=== PATIENT | female | born 1945 | race Caucasian/White ===

== ENCOUNTER → 2022-12-16 07:51 | Outpatient (CLI) | payer OTHER, SELFPAY ==
[2022-12-16 08:52] LABS: Add Manual Diff / Slide Review NO; Basophils Absolute Auto 0 /uL (0-100); Basophils Percent Auto 0.9 % (0-2); Eosinophils Absolute Auto 100 /uL (0-450); Eosinophils Percent Auto 1.7 % (2-4); Hematocrit 39.9 % (36-46); Hemoglobin 13.6 g/dL (12.0-16.0); Lymphocytes Absolute Auto 1200 /uL (1100-4500); Lymphocytes Percent Auto 32.7 % (25-40); Mean Corpuscular Hemoglobin 32.4 PG (26-34); Mean Corpuscular Volume 95.3 fL (80-100); Monocytes Absolute Auto 600 /uL (0-900); Monocytes Percent Auto 15.1 % (3-14); Neutrophils Absolute Auto 1900 /uL (1500-7000); Neutrophils Percent Auto 49.6 % (50-75); Platelet Count 319 X10^3/uL (150-400); Red Blood Cell Count 4.19 X10^6/uL (4.0-5.2); Red Cell Distribution Width 12.8 % (11.6-14.8); White Blood Cell Count 3.8 X10^3/uL (4.5-11.0)
[2022-12-16 09:21] LABS: BUN Creatinine Ratio 25.8 (6-22); Blood Urea Nitrogen 16 mg/dL (7-17); Carbon Dioxide 30 mmol/L (22-32); Chloride 103 mmol/L (98-107); Estimated Glomerular Filt Rate > 60 mL/min (>60); Glucose 84 mg/dL (80-110); HEMOLYSIS < 15 (0-50); Potassium 4.8 mmol/L (3.4-5.1); Sodium 140 mmol/L (137-145)
== END ==
PROVIDERS: PCP Internal Medicine; Referring Provider Orthopaedic Surgery; Visit Provider Orthopaedic Surgery
DX: Z01.818 Encounter for other preprocedural examination (principal); M25.562 Pain in left knee; Z01.812 Encounter for preprocedural laboratory examination
CPT/HCPCS: 36415; 80048; 85025; 93005; 93010

== ENCOUNTER 2023-01-08 10:22 | Day surgery (SDC) | payer OTHER, SELFPAY ==
[2022-12-31 12:26] VITALS: BMI 21.6
[2023-01-08] VITALS (10 sets, daily range): BP systolic 104–137; BP diastolic 55–77; PULSE 66–95; RESP 15–23; TEMP 35.9–36.7; O2SAT 82–99; BMI 21.6
--- NOTE | 2023-01-08 11:30 | DI.RAD.S_ITS ---
PROCEDURE: XR KNEE LT 1TO2V INDICATIONS: post op total knee TECHNIQUE: 2 view(s) of the knee acquired. COMPARISON: None. FINDINGS: Bones: Patient is status post knee joint arthroplasty. Hardware components are in expected positions. Visualized bony structures are intact. Soft tissues: Overlying postoperative changes are noted. IMPRESSION: Postoperative arthroplasty change. Dictated by: Karla Dillon M.D. on 01/08/2023 at 16:16 Approved by: Karla Dillon M.D. on 01/08/2023 at 16:16
[2023-01-08] MEDS: ACETAMINOPHEN 325 MG TABLET 975 MG PO (12:39)
[2023-01-08] MEDS: LACTATED RINGERS 1,000 ML 42 ML IV ×2 (12:40→15:09)
[2023-01-08] MEDS: PREGABALIN 75 MG CAPSULE PO (12:40)
[2023-01-08] MEDS: CELECOXIB 200 MG CAPSULE PO (12:41)
[2023-01-08 12:52] LABS: COVID19 -Nasal RAPID Negative (Negative)
--- NOTE | 2023-01-08 13:37 | PM.PREOP ---
Pre-operative Note Interval Note History & Physical reviewed/Exam performed by Physician: Yes Changes to H&P: No
[2023-01-08] MEDS: CEFAZOLIN 2 GM/100 ML PREMIX 100 ML IV ×2 (14:15→22:26)
[2023-01-08] MEDS: TRANEXAMIC ACID 1,000 MG VIAL 1000 MG INJ ×2 (14:30→15:32)
--- NOTE | 2023-01-08 14:49 | PM.PNB.1 ---
Peripheral Nerve Block Note Pre-Procedure Reason for block: Attending surgeon request/order for post-op pain management Consent obtained from: Patient Procedure Date of procedure: 01/08/23 Start Time: 13:50 End Time: 14:00 Performed by: Matteo Leos Sedation - enter dose in comment field: IV Midazolam (mg) (1) and IV Fentanyl (mcg) (50) Location: Pre-Op Position: Supine Laterality: Left Sterile Technique: Chloraprep Skin Wheal: Lidocaine 1% mL: 1 Gauge: 27 Equipment Single injection - Needle brand, gauge, length: 22 guage needle Medications Medications - enter concentration (%) & mL in comment field: Bupivacaine (0.5% 20 ml) Test Dose: Negative Incremental aspiration prior to injection: Yes Ultrasound Reason for Ultrasound: U/S guidance used for needle placement and U/S used to visualize spread of anesthetic Image printed/saved/archived: Yes Vital signs VS: - 01/08/23 12:45 Temperature 98.0 F Pulse Rate 79 Respiratory Rate 15 Blood Pressure 133/77 Pulse Oximetry 99 Oxygen Delivery Method Room Air Oxygen Delivery Method Room Air
--- NOTE | 2023-01-08 14:53 | SUR.OPER ---
Supine on padded OR bed, head on pillow, arms secured on padded arm boards at <90 degrees abduction, legs uncrossed, safety belt at abdomen, tape over blanket over lower right leg. Left leg secured in [place] with padding and coban
[2023-01-08] MEDS: BUPIVACAINE 0.25% (PF) 60 ML, EPINEPHrine 0.3 MG INJ (15:09)
[2023-01-08] MEDS: MORPHINE 4 MG/ML INJ INJ (15:10)
[2023-01-08] MEDS: BUPIVACAINE LIPOSOME 266 MG/20 ML VIAL INJ (15:10)
--- NOTE | 2023-01-08 15:56 | PM.OP.1 ---
Operative Date/Time/Diagnoses Date of procedure: 01/08/23 Time of procedure: 15:56 Pre-op diagnosis: Left knee osteoarthritis Post-op diagnosis: same Procedure & Clinicians Procedure: Left total knee replacement Same procedure as scheduled: Yes Indications: The patient has had progressively worsening left knee pain with radiographic changes consistent with arthritis. Non-operative management has failed and the patient has requested total knee replacement. The risks, benefits and alternatives to surgery were discussed with the patient prior to proceeding. Risks discussed included, but were not limited to, failure to relieve pain, stiffness, infection, nerve damage, deep venous thrombosis, pulmonary embolism, stroke, coma, heart attack, permanent paralysis and , as well as the potential need for eventual revision of the prosthetic. Surgeon: Yousuf Landa Smalltalk Developer: Ezequiel Pretty Click Yes if Unassisted: No Anesthesia Type: Spinal, Peripheral nerve block and Local Operative Notes Findings: Severe medial and moderate patellofemoral osteoarthritis Closure Type: primary Specimen(s): none sent Prosthetic devices, grafts, tissues, transplants, or devices: Implants used in this procedure were manufactured by the [employer] and [employer] and included the BCS II Journey total knee replacement with a size 7 left cobalt chromium femur, a size 6 left non porous tibial base plate, a 10 mm cross-linked polyethylene insert and a 35 mm oval Kristal II patella. Applied: implant(s) Estimated Blood Loss (mL): 25 Blood products transfused: none Tourniquet time (min): 47 Procedure in detail: The patient was seen in the pre-operative area, where the left knee was identified as the operative site and this was marked with my initials. The patient received pre-operative antibiotics, and was taken to the operating room and placed on the operative table in the supine position. After satisfactory anesthesia, a application development director out was performed. The left leg was encircled with a tourniquet about the proximal thigh, and the leg was prepared from the toes to the tourniquet with ChloroPrep in the usual fashion and draped through sterile drapes. The leg was elevated and exsanguinated with Eschmark bandage and the tourniquet inflated to 250 mmHg pressure. The knee was approached through an approximately 18 cm incision centered over the patella and carried into the knee through a medial parapatellar arthrotomy. The anterior osteophytes and soft tissues were removed. The rotational landmarks of Alex's line and the transepicondylar axis were marked on the femur with electrocautery, and intramedullary guide holes for the femur and tibia were created. The distal femoral cut was made in 6 degrees of valgus using the intramedullary guide at the primary cut setting. The proximal tibial cut was then made using the intramedullary guide, taking 9 mm of bone off the less involved side. The extension gap was checked and the rotation of the femoral component confirmed with the gap balancing blocks. The anterior, posterior and chamfer cuts were then made. The posterior osteophytes and soft tissues were then removed. The posterior capsule was injected with part of a mixture of 40 ml 0.25% Marcaine mixed with 20 ml Exparel and 4 mg of morphine for post-operative pain control. The remainder of this mixture was injected into the capsule and subcutaneous tissues during cement curing. The tibia was prepared with the rotation set by an extra medullary guide. Trial tibial and femoral components were then placed and the intercondylar notch cut through the femoral trial. Range of motion was 0-140 degrees, with good stability throughout the range. The patella was then cut to accommodate the patellar prosthetic. There was no need for a lateral release. The trials were then removed, and the femoral hole plugged with a bone plug. The bone was prepared with pulsatile lavage, and dried with a sponge. Cement was applied and the final prosthetics placed. Excess cement was removed during and after cement curing. After confirming there was no extruded cement posteriorly, the final tibial insert was placed. The knee was copiously irrigated and the tourniquet deflated. Hemostasis was obtained. The capsule was closed with interrupted # 2 polyester sutures. The subcutaneous layer was closed with 3-0 Vicryl, and the skin with a running 3-0 V-Lock suture and Dermabond. An Aquacel Ag dressing was applied and the patient was taken to recovery having tolerated the procedure well. The assistance of a skilled surgical territory manager was necessary for this procedure to provide positioning, exposure and retraction to protect vital structures. Without the services of Mr. Pretty, the procedure could not have gone forward in a safe, expedient fashion. Complications: none Post-operative Condition: stable Disposition: PACU Plan for aftercare: The patient will be maintained on a standard total knee replacement protocol with weight bearing as tolerated. The patient will receive aspirin and sequential compression devices for DVT prophylaxis. The patient will be discharged home when safe for the home environment.
[2023-01-08] MEDS: IBUPROFEN 600 MG TABLET PO ×2 (17:39→22:25)
[2023-01-08] MEDS: ACETAMINOPHEN 325 MG TABLET 650 MG PO ×2 (17:39→22:25)
[2023-01-08] MEDS: LACTATED RINGERS 1,000 ML 100 ML IV (17:39)
--- NOTE | 2023-01-08 17:48 | PC.NURSE ---
Pt arrived from PACU at 1630 on stretcher. Transferred to bed. A&Ox4, no c/o pain. Able to feel pressure in feet and legs when touched. Able to move feet. L knee in sasha wrap c/d/i. Patient and friend oriented to room and call light. SCDs in place, bed in low position, bed alarm activated.
[2023-01-08] MEDS: OXYCODONE IR 5 MG TABLET PO (18:58)
[2023-01-08] MEDS: ASPIRIN EC 81 MG TABLET PO (21:10)
[2023-01-08] MEDS: DOCUSATE 100 MG CAPSULE PO (21:10)
[2023-01-08] MEDS: GABAPENTIN 300 MG CAPSULE PO (21:10)
[2023-01-09 02:00] VITALS: BP 113/60; PULSE 70; RESP 18; TEMP 36; O2SAT 92
[2023-01-09] MEDS: ACETAMINOPHEN 325 MG TABLET 650 MG PO ×2 (04:55→09:59)
[2023-01-09] MEDS: IBUPROFEN 600 MG TABLET PO ×2 (04:55→09:59)
[2023-01-09 05:56] LABS: Hematocrit 32.5 % (36-46); Hemoglobin 11.1 g/dL (12.0-16.0)
[2023-01-09] MEDS: CEFAZOLIN 2 GM/100 ML PREMIX 100 ML IV (06:04)
[2023-01-09] MEDS: OXYCODONE IR 5 MG TABLET PO ×2 (06:07→09:59)
--- NOTE | 2023-01-09 07:06 | PM.DS.1 ---
History of Present Illness History of Present Illness Date Patient Seen: 01/09/23 Time Patient Seen: 07:07 Chief complaint: Left knee osteoarthritis Narrative: The history and physical is contained in the chart previously completed note. Please refer to that note for this information. Discharge Providers Provider Date of admission: January 08, 2023 Discharge Date: 01/09/23 Primary care physician: Anjali Noble MD Consults: 01/08/23 16:45 Consult to Discharge Planning Routine Comment: Consult to Occupational Therapy Evaluate & Treat Comment: Physician Instructions: Evaluate and treat Consult to Physical Therapy Evaluate & Treat Comment: Physician Instructions: postop TKA protocol Discharge provider: Yousuf Landa MD Summary Hospital Course Discharge Diagnosis: 1. Left knee osteoarthritis 2. Post hemorrhagic anemia Hospital Course: The patient was admitted to the hospital and taken directly to the operating room on January 08, 2023. She underwent a left total knee replacement without complications. She was fairly comfortable postoperatively with good control from her perioperative blocks. She was noted to have a mild post hemorrhagic anemia as anticipated. It is felt this will likely improve with normal diet. Status at Discharge Cognitive/behavioral status at discharge: at baseline, oriented Functional status at discharge: uses cane/walker Overall status at discharge: patient is progressing back to baseline Time Spent with Patient Time spent: Less than 30 minutes Exam Vital Signs (past 8 hours): - 01/09/23 02:00 Temperature 96.8 F L Pulse Rate 70 Respiratory Rate 18 Blood Pressure 113/60 Pulse Oximetry 92 Oxygen Flow Rate 0 Oxygen Delivery Method Room Air Oxygen Flow Rate 0 Narrative Exam Narrative: Left knee wound is dressed with no drainage on the bandage. Calf is soft. Light touch and motion are intact in the left lower extremity. 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 She has a mild, anticipated post hemorrhagic anemia. She is comfortable in his ready for discharge home. Plan of Treatment: Discharge to home after physical therapy this morning. Follow up in my office in 10-14 days. A prescription has been electronically sent to her pharmacy for oxycodone. She is been instructed in the use of Tylenol and ibuprofen for additional postoperative pain control and the use of low-dose aspirin for DVT prophylaxis. Discharge Plan Discharge Plan Patient Disposition: Home Discharge orders & Medications Discharge Orders: Discharge (Order); Ordered 01/09/23 Ordered By: Yousuf Landa Prescriptions: New acetaminophen 325 mg Tablet 650 mg PO Q6H Qty: 250 0RF aspirin 81 mg Tablet,Delayed Release (Dr/Ec) 81 mg PO BID Qty: 84 0RF ibuprofen 600 mg Tablet 600 mg PO Q6H Qty: 250 0RF oxycodone 5 mg Tablet 5 mg PO Q4H PRN (Reason: Pain, Moderate (4-6)) Qty: 40 0RF Continued gabapentin [Neurontin] 300 MG capsule 300 mg PO HS Qty: 0 Discontinued acetaminophen [Tylenol Extra Strength] 500 MG tablet 500 mg PO BEDTIME Qty: 0 Follow up/Referrals: Anjali Noble MD [Primary Care Provider] - Yousuf Landa MD [Physician] - As previously scheduled Diet/Activity/Treatments Diet: Diet as Tolerated and Regular Activity: You may bear weight as tolerated on your left leg. Please try to walk for 5-10 minutes every hour while awake. Otherwise lie down and keep the knee elevated above her heart. Cold/Heat Therapy: You may apply ice for 15 minutes every hour as needed to the left knee for pain control. Skin/Wound/Dressing Care Report to your healthcare provider any signs of infection, such as:: chills, fever, night sweats, increased pain, unusual drainage and unusual redness Dressing: You may remove the Giovanni wrap 3 days after surgery and shower normally. Leave the deeper dressing in place until your postoperative follow-up. If the central strip of the deeper dressing becomes saturated with either water or blood, please call the office to have it evaluated. Visit Report/Discharge Packet Instructions: DI for Knee Replacement Stand Alone Forms: Patient Portal/API, Surgery Discharge Discharge Data Primary Care Provider: Anjali Noble Attending Provider: Yousuf Landa
[2023-01-09 08:27] VITALS: BP 124/73; PULSE 75; RESP 17; TEMP 36.2; O2SAT 98
[2023-01-09] MEDS: ASPIRIN EC 81 MG TABLET PO (09:08)
[2023-01-09] MEDS: DOCUSATE 100 MG CAPSULE PO (09:08)
--- NOTE | 2023-01-09 09:35 | PT.IIE ---
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) Hx laparoscopic cholecystectomy (12/18/10) Hx of bilateral cataract extraction (2021) Hx of tubal ligation Medical History (Last Updated 12/31/22 @ 13:09 by Vanessa Vásquez RN) Easy bruisability History of COVID-19 (~2021) Numbness Osteoarthritis Physical Therapy Inpatient Evaluation/Re-Eval M1 PT/OT-IP Prior Functional Status Start: 01/09/23 13:15 Freq: NEEDED Status: Active Protocol: Document 01/09/23 09:35 AB (Rec: 01/09/23 13:39 AB [id number]) Medical Review Prior Functional Status Medical History Reviewed Yes Communication able to make needs known Mobility and Gait pt stated that she is independent with all mobilities and ambulation without AD Social History Household Members none Living Arrangements House Number of Floors (Floors) One Floor Number of Stairs To Enter/Railing? 3 steps without AD Home Environment Standard Height Toilet,Walk in Shower,Built-In Shower Seat Home Equipment Front Wheel Walker,Four Wheel Walker,Straight Cane,Shower Seat with Backrest,Hand Held Shower,Grab Bars In Shower Additional Social History Comment pt stated that her friend will stay with her for ~ 10 days to help her M2 PT-IP Current Condition Start: 01/09/23 13:15 Freq: NEEDED Status: Active Protocol: Document 01/09/23 09:35 AB (Rec: 01/09/23 13:39 AB [id number]) Physical Therapy Current Condition Current Condition Evaluation Date 01/09/23 Treatment Diagnosis s/p L TKA; difficulty in walking Onset Date 01/08/23 M3 PT-IP Subjective Start: 01/09/23 13:15 Freq: NEEDED Status: Active Protocol: Document 01/09/23 09:35 AB (Rec: 01/09/23 13:39 AB [email or web address]) Subjective Physical Therapy Visit Type Type Initial Evaluation Visit Start Time 09:35 Visit Stop Time 11:30 Total Visit Minutes 30 Notes pt seen for split visits: 935 to 945 am and 1110 to 1130 Number of FLIGHT OPERATIONS SPECIALIST Visits 0 Physical Therapy Visit Comments Patient Comments agreeable to do PT Therapy Pain Assessment Pain When Pain Assessed At Rest Pain Present Pain Present Pain Reported Location Left Knee Intensity 5 Scale Used Numeric (0 - 10) Pain Management Techniques Distraction,Modification of Treatment,Re-positioning, Timing of Activity with Medications M4 PT-IP Mobility and Gait Start: 01/09/23 13:15 Freq: NEEDED Status: Active Protocol: Document 01/09/23 09:35 AB (Rec: 01/09/23 13:39 AB [id number]) PT-Bed Mobility Assessment Supine to Sit Supine to Sit Standby Assistance Sit to Supine Sit to Supine Standby Assistance PT-Transfer Assessment Sit to and From Stand Sit to and from Stand Standby Assistance,1 Person Assistance,Use of Upper Extremities Equipment Transfer Assistive Device Gait Belt,Front Wheeled Walker Orthotic/Prosthetic Devices or Brace: No Transfers Transfer Destination Bed,Chair Transfer Technique ambulated Transfer Ability Level of Assist Standby Assistance,Use of Upper Extremities Comments Mobility Comments pt completed sit to stand from chair SBA and ambulated to EOB SBA using FWW. completed bed mobility SBA. Assessed safety with 4WW. educated on use and brake management. pt completed sit to stand from bed SBA and ambulated towards the stairs using 4WW SBA ~ 150 ft. completed up/down steps using SPC SBA to CGA. repeated x 2 sets. pt ambulated back to her room using 4WW SBA. pt sat on chair and positioned with call ilght and table next to pt. pt without further concerns. Gait Assessment Gait Gait Assistance Required: Standby Assistance Distance (Feet) 150 Able to Maintain Weight Bearing Status Yes During Gait Assistive Devices Assistive Device Gait Belt,Front Wheeled Walker Orthotic/Prosthetic Devices or Brace: No Gait Deviations General Gait Pattern Decreased Stride Length, Decreased Feet Clearance Factors Limiting Gait Function Factors Limiting Gait Function Decreased Activity Tolerance, Decreased Strength,Limited Range of Motion,Pain,Poor Balance Stair Climbing Assessment Evaluation Level of Assist On Stairs Standby Assistance,Contact Guard Assistance Devices Stair Climbing Assistive Devices Straight Cane Technique/Endurance Stair Climbing Direction Ascend and Descend Stair Climbing Technique Step to Step Number of Steps Climbed 3 Query Text: Stair Climbing Set # Repetitions (reps) 2 PT-Balance Assessment Sitting Balance and Reactions Static Sitting Balance Ability Normal Dynamic Sitting Balance Ability Normal Standing Balance and Reactions Static Standing Balance Ability Good Dynamic Standing Balance Ability Fair Device Used FWW M5 PT-IP Objective Assessments Start: 01/09/23 13:15 Freq: NEEDED Status: Active Protocol: Document 01/09/23 09:35 AB (Rec: 01/09/23 13:39 AB [id number]) Orientation Orientation/Cognition Level of Alertness Alert Orientation Name,Age,Birthday,Month,Date, Year,Day of Week,Place, Situation Language Function Ability No Deficits Noted Safety Awareness Understands Safety Issues Memory Description No Deficits Noted Gross Range of Motion Lower Extremity ROM Assessment Within Functional Limits Strength Lower Extremity Strength Assessment Left Impaired Comments Strength Comments L knee flexion: 3-/5 L knee extension: 3+/5 L hip flexion: 3+/5 Coordination Assessment Gross Coordination Gross Coordination WNL Sensation Assessment Sensation Gross Sensation WNL Muscle Tone Muscle Tone WNL Yes M6 PT-IP Treatment Start: 01/09/23 13:15 Freq: NEEDED Status: Active Protocol: Document 01/09/23 09:35 AB (Rec: 01/09/23 13:39 [email or web address]) Physical Therapy Treatment Education Education Provided Precautions,Weight Bearing Status,Post-Op Packet,Safety M7 PT-IP Assessment and Plan Start: 01/09/23 13:15 Freq: NEEDED Status: Active Protocol: Document 01/09/23 09:35 AB (Rec: 01/09/23 13:39 [email or web address]) PT Summary Assessment and Plan Potential Rehabilitation Potential Good Status of Condition at Evaluation Stable Summary Impairments Pain,ROM,Strength,Balance, Coordination,Sensation,Tone, Cognition,Bed Mobility, Transfers,Gait,Activity Tolerance Assessment Summary pt requiring SBA to CGA with mobility using FWW/4WW. uses SPC for stair climbing. pt plans to go home and her friend will be staying with her to assist her. pt has outpt PT set up. pt may go home when medically stable. Goals Bed Mobility Goal Independent Transfer Goal Independent,Four Wheeled Walker Gait Goal Independent,Four Wheel Walker Gait Distance 300 Other Goals up/down 3 steps SPC mod I Days to Meet Goals 3 Frequency of Treatment Frequency Of Treatment Twice a Day Treatment Plan Physical Therapy Treatment Plan Bed Mobility Training,Transfer Training,Gait Training, Therapeutic Exercise,Balance Retraining,Post Op Education, Discharge Planning,Hot or Cold Pack,Neuromuscular Re-ed, Coordination Retraining,Manual Therapy Weight Bearing Status Weight Bearing Status Weight Bear as Tolerated Allowed Weight Bearing Amount (enter % LLE WBAT or #) (%) Recommendations To Nursing Amount of Assist Needed 1 Person Assist Discharge Recommendations PT Discharge Recommendations Home with Assistance, Outpatient PT Transportation Needs at Discharge Private Vehicle
--- NOTE | 2023-01-09 09:39 | CM.DANOTE ---
Discharge Planning/Care Management CM Discharge Assessment Start: 01/09/23 09:35 Freq: Status: Active Protocol: Document 01/09/23 09:35 JANEE (Rec: 01/09/23 09:39 JANEE [id number]) Discharge Planning Assessment Assigned Account Services Coordinator YESSY Boyer DPOA/Assigned Designee Name luis e Cagle Contact Information [phone] Advance Directives? Yes Advance Directives on File No History Provided By Patient,Medical Record Prior Living Arrangements House Household Members none Comment Spouse resides in memory care unit Type of transporation used prior to Drives own vehicle admit Independent with ADL's Yes Is patient alert and oriented? Yes Patient/Family Preference OP PT Therapy Barriers to Discharge No Comment Patient is a 77 yo F POD1 from Left TKA by Dr Landa. PCP Anjali Horvath [facility] Patient has planned for return home w/family to assist her and is currently awaiting therapy eval; patient expects to be cleared from therapy team w/outpatient PT No needs identified at this time from CM team. Will plan to follow if DC needs or concerns arise JW Discharge Plan Home Transportation Arrangement Family Referrals Initiated None needed
--- NOTE | 2023-01-09 10:18 | OT.IP.EVAL ---
Current Diagnoses Unilateral primary osteoarthritis, left knee (01/08/23) Surgery Performed Operation Date: 01/08/23 13:45 Actual Procedures p Total Knee Arthroplasty(Left) - Yousuf Landa MD Past Medical History (Last Updated 12/31/22 @ 13:09 by Vanessa Vásquez RN) Easy bruisability History of COVID-19 (~2021) Numbness Osteoarthritis Surgical History (Last Updated 12/31/22 @ 13:09 by Vanessa Vásquez RN) History of incision and drainage (05/11/12) History of total right hip replacement (03/01/13) Hx laparoscopic cholecystectomy (12/18/10) Hx of bilateral cataract extraction (2021) Hx of tubal ligation Occupational Therapy Inpatient Evaluation/Re-Eval M1 PT/OT-IP Prior Functional Status Start: 01/09/23 13:15 Freq: NEEDED Status: Active Protocol: Document 01/09/23 14:54 CGR (Rec: 01/09/23 15:04 CGR [id number]) Medical Review Prior Functional Status Medical History Reviewed Yes Communication able to make needs known Mobility and Gait pt stated that she is independent with all mobilities and ambulation without AD Activities of Daily Living and IADL's Pt is IND in all ADLs and IADLs at baseline. 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 Pt states her was recently moved into memory care. Social History Household Members none Living Arrangements House Number of Floors (Floors) Two Floors Number of Stairs To Enter/Railing? 3 steps without rail, pt can stay on the main floor. Home Environment Standard Height Toilet,Walk in Shower,Built-In Shower Seat Home Equipment Front Wheel Walker,Four Wheel Walker,Quad Cane,Shower Seat with Backrest,Hand Held Shower ,Monomer Recovery Supervisor,Grab Bars In Shower Additional Social History Comment pt stated that her friend will stay with her for ~ 10 days to help her. Pt has a flat bed M2 OT-IP Current Condition Start: 01/09/23 14:54 Freq: Status: Active Protocol: Document 01/09/23 14:54 CGR (Rec: 01/09/23 15:04 CGR [id number]) Occupational Therapy Current Condition Current Condition Evaluation Date 01/09/23 Treatment Diagnosis L TKA Diagnosis Onset Date 01/08/23 Weight Bearing Status Weight Bearing Status Weight Bear as Tolerated M3 OT- IP Subjective and Pain Start: 01/09/23 14:54 Freq: Status: Active Protocol: Document 01/09/23 14:54 CGR (Rec: 01/09/23 15:04 CGR [id number]) OT- Subjective Occupational Therapy Visit Type Type Initial Evaluation Visit Start Time 09:48 Visit Stop Time 10:18 Total Visit Minutes 30 OT Pain Assessment Pain When Pain Assessed At Rest Pain Present Pain Present Pain Reported Location Left Knee Intensity 4 Scale Used Numeric (0 - 10) Management Techniques Distraction,Modification of Treatment,Re-positioning, Timing of Activity with Medications M4 OT- IP ADL's Start: 01/09/23 14:54 Freq: Status: Active Protocol: Document 01/09/23 14:54 CGR (Rec: 01/09/23 15:04 CGR [id number]) OT [id number]-Wurohbk Comments OT Self-Feeding Comments not meal time OT ADL-Grooming General Evaluation Grooming Ability Independent Areas Needing Assistance Combing/Brushing Hair,Face Washing Comments OT Grooming Comments standing at sink OT ADL-Oral Care General Eval Oral Care Ability Independent Areas of Assistance Brushing Teeth,Retrieving/Set- Up of Items Comments Oral Care Comments standing at sink OT ADL-Dressing General Eval Lower Body Dressing Ability Independent Areas Needing Assistance Socks Comments OT Dressing Comments seated in chair. educated on starting dressing with painful leg first. OT ADL-Toileting General Evaluation Toileting Ability Independent Comments OT Toileting Comments Pt urinated seated on toilet OT ADL-Bathing Comments OT Bathing Comments not performed M5 OT- IP IADL's Start: 01/09/23 14:54 Freq: Status: Active Protocol: Document 01/09/23 14:54 CGR (Rec: 01/09/23 15:04 CGR [id number]) OT-Instrumental Activities of Daily Living Deficits IADL Deficits Identified No Deficits Home Safety Awareness Awareness of Need for Assistance at Home Good Awareness Ability to Problem Solve Emergency Able to Problem Solve Situations Medication Management Medication Management No Deficits Identified Money Management Money Management No Deficits Identified Meal Preparation Meal Preparation No Deficits Identified Drug Safety Coordinator Drug Safety Coordinator No Deficits Identified Driving Driving Comments 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 She understands that she should not be driving while taking pain medication. M6 OT- IP Functional Cognition Start: 01/09/23 14:54 Freq: Status: Active Protocol: Document 01/09/23 14:54 CGR (Rec: 01/09/23 15:04 R [id number]) Cognitive Factors Limiting Selfcare Function Cognitive Ability Level of Alertness Alert Patient Orientation Name,Age,Birthday,Month,Date, Year,Day of Week,Place, Situation Attention Span Ability Capable of Focused Attention, Capable of Sustained Attention Ability to Follow Commands Able to Follow Multi-Step Commands OT- Vision and Hearing OT- Hearing Assessment OT- Hearing Assessment WFL OT- Vision Assessment Vision History Cataracts Visual Acuity WFL Visual Attentiveness WFL Occular Pursuits WFL Visual Convergence WFL Vision Assessment Comments No glasses, hx of cateract sx. M7 OT- IP Mobility and Balance Start: 01/09/23 14:54 Freq: Status: Active Protocol: Document 01/09/23 14:54 CGR (Rec: 01/09/23 15:04 R [id number]) OT- Bed Mobility Assessment Rolling Type of Rolling Roll to Right Level of Assistance Independent Supine to Sit Supine to Sit Assist Independent Sit to Supine Sit to Supine Assist Independent Scooting Scooting to Edge of Bed Independent OT-Transfer Assessment Sit to and From Stand Sit to and from Stand Standby Assistance Transfers Transfer Ability Standby Assistance Technique Transfer Destination Bed,Chair,Toilet Transfer Technique Stand Step Pivot Devices Transfer Assistive Devices Gait Belt,Front Wheeled Walker OT- Balance Assessment Sitting Balance and Reactions Static Sitting Balance Ability Normal Dynamic Sitting Balance Ability Normal M8 OT- IP Objective Assessments Start: 01/09/23 14:54 Freq: Status: Active Protocol: Document 01/09/23 14:54 CGR (Rec: 01/09/23 15:04 R [id number]) OT Gross Range of Motion Upper Extremity Range of Motion Assessment Within Functional Limits OT Strength Upper Extremity Strength Assessment Within Functional Limits Comments Strength Comments 5/5 OT- Coordination Assessment Upper Extremity Finger to Nose Test Within Functional Limits Finger Tapping Test Within Functional Limits OT-Muscle Tone Assessment Muscle Tone WNL Yes OT Sensation Assessment Edema Edema Absent M9 OT- IP Assessment and Plan Start: 01/09/23 14:54 Freq: Status: Active Protocol: Document 01/09/23 14:54 CGR (Rec: 01/09/23 15:04 R [id number]) OT Summary Assessment and Plan Potential Rehabilitation Potential Excellent Analytic Complexity at Evaluation Low Summary OT Impairments Pain,Shower Transfers,Activity Tolerance Progress Towards Goals Progressing Toward Goals Assessment Summary Pt presents as a low complexity evaluation s/p admit for L TKA. Pt was able to perform LB dressing, demonstrates safe use of the walker, and safe mobility around the room. Pt has a plan for assist at home with friends staying with her for the first 10 days after sx. Pt is close to her baseline. Pt would benefit from shower with OT but is otherwise safe for discharge home. Goals Bathing Goal Independent Shower Transfer Goal Independent Days to Meet Goals 1 Frequency of Treatment Frequency Of Treatment Once a Day Treatment Plan OT Treatment Plan ADL Training,Functional Mobility,Patient/Family Education,Discharge Planning Other Treatment Recommendations and Next shower Treatment Focus Discharge Recommendations OT Discharge Recommendations Home with Assistance Transportation Needs at Discharge Private Vehicle
== END 2023-01-09 12:00 | disposition home or self-care (01) ==
LOC: OR 10:23 → AC 10:24
PROVIDERS: PCP Internal Medicine; Referring Provider Orthopaedic Surgery; Visit Provider Orthopaedic Surgery
PROC: 0SRD0JZ Replacement of Left Knee Joint with Synthetic Substitute, Open Approach (ICD-10-PCS; CPT 27447; principal; 2023-01-08 13:45)
DX: M17.12 Unilateral primary osteoarthritis, left knee (principal); G89.18 Other acute postprocedural pain; Z20.822 Contact with and (suspected) exposure to COVID-19; D50.0 Iron deficiency anemia secondary to blood loss (chronic)
CPT/HCPCS: 27447; 36415; 64450; 73560; 82962; 85014; 85018; 87635; 97161; 97165; 97535; C1776; C9803; C9290; J0171; J0690; J2250; J2270; J2704; J3010

== ENCOUNTER → 2024-04-01 16:04 | Outpatient (CLI) | payer OTHER, SELFPAY ==
[2023-01-08 16:49] VITALS: BMI 21.6
--- NOTE | 2024-04-01 16:35 | EKG_ITS ---
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
[2024-04-01 17:31] LABS: Hemoglobin A1C% w Est Avg Glu 5.6 % (4.0-6.0)
[2024-04-01 17:33] LABS: Appearance Urine UA CLEAR; Bilirubin Urine UA NEGATIVE (NEGATIVE); Color Urine UA YELLOW; Glucose Urine UA NEGATIVE (Negative); Ketones Urine UA NEGATIVE (NEGATIVE); Leukocyte Esterase Urine UA NEGATIVE (NEGATIVE); Nitrite Urine UA NEGATIVE (Negative); Occult Blood Urine UA NEGATIVE (Negative); Protein Urine UA NEGATIVE (Negative); Urobilinogen Urine UA 0.2 E.U./dL (0.2)
[2024-04-01 17:33] LABS: BUN Creatinine Ratio 22.7 (6-22); Blood Urea Nitrogen 15 mg/dL (7-17); Calcium 9.4 mg/dL (8.4-10.2); Carbon Dioxide 27 mmol/L (22-32); Chloride 105 mmol/L (98-107); Estimated Glomerular Filt Rate > 60 mL/min (>60); Glucose 171 mg/dL (80-110); HEMOLYSIS < 15 (0-50); Potassium 4.1 mmol/L (3.4-5.1); Sodium 137 mmol/L (137-145)
[2024-04-01 17:42] LABS: Bacteria Urine None Seen; RBC Urine None Seen (0-5/HPF); Squamous Epithelial Cell Urine None Seen (0-5/HPF); Urine Volume 10mL (spun); WBC Urine 0-1/HPF (0-5/HPF)
[2024-04-01 17:43] LABS: Amorphous Sediment Urine 1+; Culture Indicated Urine Cult Not Indicated
[2024-04-01 17:54] LABS: Add Manual Diff / Slide Review NO; Basophils Absolute Auto 0 /uL (0-100); Basophils Percent Auto 0.5 % (0-2); Eosinophils Absolute Auto 100 /uL (0-450); Eosinophils Percent Auto 2.7 % (2-4); Hemoglobin 12.7 g/dL (12.0-16.0); Lymphocytes Absolute Auto 1800 /uL (1100-4500); Lymphocytes Percent Auto 35.7 % (25-40); Mean Corpuscular HGB Conc 33.5 % (30-36); Mean Corpuscular Hemoglobin 32.2 PG (26-34); Mean Corpuscular Volume 95.9 fL (80-100); Monocytes Absolute Auto 400 /uL (0-900); Monocytes Percent Auto 7.9 % (3-14); Neutrophils Absolute Auto 2600 /uL (1500-7000); Neutrophils Percent Auto 53.2 % (50-75); Platelet Count 348 X10^3/uL (150-400); Red Blood Cell Count 3.96 X10^6/uL (4.0-5.2); White Blood Cell Count 4.9 X10^3/uL (4.5-11.0)
== END ==
PROVIDERS: PCP Internal Medicine; Referring Provider Orthopaedic Surgery; Visit Provider Orthopaedic Surgery
DX: Z01.818 Encounter for other preprocedural examination (principal); R73.9 Hyperglycemia, unspecified; Z01.812 Encounter for preprocedural laboratory examination; N39.0 Urinary tract infection, site not specified
CPT/HCPCS: 36415; 80048; 81001; 83036; 85025; 93005; 93010

== ENCOUNTER 2024-06-24 11:24 | Day surgery (SDC) | payer OTHER, SELFPAY ==
[2023-01-08 16:49] VITALS: BMI 21.6
[2024-06-15 12:54] VITALS: BMI 21.2
[2024-06-24] VITALS (10 sets, daily range): BP systolic 100–133; BP diastolic 48–81; PULSE 67–95; RESP 16–23; TEMP 36.3–37.1; O2SAT 93–97; BMI 21.2
--- NOTE | 2024-06-24 | DI.RAD.S_ITS ---
PROCEDURE: [id number] W PEL IF PERFORMED INDICATIONS: ANTERIOR TOTAL LEFT HIP TECHNIQUE: Intraoperative images of the left hip COMPARISON: [facility], CR, XR HIP W PEL IF DONE LT 2V, 06/24/2024, 16:58. FINDINGS: Intraoperative images show a left hip total arthroplasty in progress. IMPRESSION: Intraoperative images of a left hip total arthroplasty. Please see the operative report for further details. Dictated by: Hong Morel M.D. on 06/25/2024 at 11:19 Approved by: Hong Morel M.D. on 06/25/2024 at 11:20
--- NOTE | 2024-06-24 06:00 | DI.RAD.S_ITS ---
PROCEDURE: XR HIP W PEL IF DONE LT 2V INDICATIONS: jean TECHNIQUE: AP view of the pelvis, lateral view of the left hip COMPARISON: [facility], CR, [id number] W PEL IF PERFORMED, 06/24/2024, 15:08. FINDINGS: Status post recent left hip total arthroplasty in anatomic alignment. Expected postoperative edema and emphysema around the left hip. Status post prior right hip total arthroplasty. No hardware complication in the field of view; the distal femoral stem is not in the field of view. Diffuse osseous demineralization. No pelvic ring disruption. Pelvic phleboliths. IMPRESSION: Status post recent left hip total arthroplasty without hardware complication. Dictated by: Hong Morel M.D. on 06/25/2024 at 11:31 Approved by: Hong Morel M.D. on 06/25/2024 at 11:33
[2024-06-24] MEDS: ACETAMINOPHEN 325 MG TABLET 975 MG PO (12:12)
[2024-06-24] MEDS: LACTATED RINGERS 1,000 ML 42 ML IV (12:12)
[2024-06-24] MEDS: CELECOXIB 200 MG CAPSULE PO (12:13)
[2024-06-24] MEDS: VANCOMYCIN 1,000 MG/200 ML PIGGYBACK 200 MG IV (12:42)
--- NOTE | 2024-06-24 13:46 | PM.PREOP ---
Pre-operative Note Interval Note History & Physical reviewed/Exam performed by Physician: Yes Changes to H&P: No
--- NOTE | 2024-06-24 13:46 | PM.OP.1 ---
Operative Date/Time/Diagnoses Date of procedure: 06/24/24 Time of procedure: 14:00 Pre-op diagnosis: Left hip osteoarthritis Post-op diagnosis: same Procedure & Clinicians Procedure: Left total hip arthroplasty anterior approach Same procedure as scheduled: Yes Indications: The patient has had progressively worsening left hip pain with radiographic changes consistent with arthritis. Non-operative management has failed and the patient has requested total hip replacement. The risks, benefits and alternatives to surgery were discussed with the patient prior to proceeding. Risks discussed included, but were not limited to, failure to relieve pain, leg length discrepancy, dislocation, stiffness, infection, nerve damage, deep venous thrombosis, pulmonary embolism, stroke, coma, heart attack, permanent paralysis and , as well as the potential need for eventual revision of the prosthetic. Surgeon: Marion Rivas Ethnology Professor: Ezequiel Pretty Anesthesia Type: General and Spinal Operative Notes Findings: Severe left hip OA, adequate stability, adequate bone Closure Type: primary Specimen(s): none sent Prosthetic devices, grafts, tissues, transplants, or devices: Rivas and nephew 52 mm R3, neutral poly liner,one 6.5 mm screw, polar stem lateralized size 1, 36 +0 femoral head cobalt chrome Estimated Blood Loss (mL): 250 Blood products transfused: none Procedure in detail: The patient was brought to the operating room. Patient was carefully positioned in the supine position. Time-out was performed and antibiotics were given. Anesthesia was induced. She was positioned in the on the table in order to allow hyperextension of the hip. The left lower extremity was prepped and draped in a standard sterile fashion. An anterior left hip incision was made 1 fingerbreadth lateral to the anterior superior iliac spine and extended distally towards the greater trochanter. Dissection was carried out through skin and subcutaneous tissues. Superficial hemostasis was achieved. The fascia over the tensor fascia zoey was defined and incised with a knife. Two Allis clamps were used to grasp the fascia. Tensor fascia zoey was retracted laterally. A gelpi retractor was placed. Dissection was carried out down along the neck. The circumflex vessels were carefully identified and cauterized with the Aqua Mantis. A PA was used and was essential for intraoperative retraction and safe implantation of the components. There was good visualization of the femoral neck. A Cobra was placed superior to the neck and the gluteus fibers were carefully stripped from that superior aspect of the capsule. A 2nd retractor was placed along the inferior aspect of the neck. The rectus insertion along the capsule was partially released. A 3rd retractor that was then gently placed over the rim of the acetabulum under the rectus. Capsule was carefully incised and released from the intertrochanteric line circumferentially superior to the mid sagittal line and inferiorly to the mid sagittal line until the lesser trochanter was palpable. A tag stitch was placed both in the superior and inferior limb of the capsular insertion. Along the acetabulum capsule was also released up to the mid sagittal 12:00 position. A portion of the labrum was resected. A saw was used to perform an osteotomy at the level of the intertrochanteric line and the junction of the superior femoral neck leaving approximately 1 finger breath of residual inferior neck above the lesser trochanter. A 2nd cut was made along the femoral neck at the base of the head and a napkin ring of neck was removed. Corkscrew was placed in the femoral head and the head was removed without difficulty. Retractors were then repositioned around the acetabulum. Residual labrum was resected and additional osteophytes were removed. A reamer that was 4 mm below the templated size was placed by hand in the acetabulum and it was reamed to centralize the acetabulum. It was then reamed up to 2 under the templated size and fluoroscopy was brought in to confirm the position of the reaming and depth of reaming. I reamed 1 under the anticipated size. A trial cup was placed and noted that it was appropriately sized and fluoroscopy confirmed position and depth. The component was open and inserted without difficulty fluoroscopic imaging was used to confirm that the cup had been adequately seated and was well positioned. It was further stabilized with a single screw. Neutral poly liner was placed. The cup was tested and noted to be stable. Attention was then directed to the femur. The femur was gently hyperextended additional capsular release was performed as needed in order to allow adequate visualization of the proximal femur with elevation of the femur. Patient was placed in a hyperextended slightly adducted position with maximum external rotation. Box osteotome was used to check for any residual neck as well as sclerotic bone along the trochanter. Landrum pepper was placed in the femur. Additional broaching was performed. Canal finder was used to determine the alignment of the canal and position. Size 1 broach was placed. The canal was then appropriately broached up to the templated size as long as there was adequate stability of the broach and serial advancement of the broach without excessive impingement. Specific attention was directed at avoiding varus attempting to direct the distal aspect of the broach more anteriorly and avoiding excessive anteversion. Trial reduction showed acceptable range of motion, good stability, no posterior impingement, yazidi of leg length and appropriate lateral shuck. I also hyperflexed the hip and checked that there was no impingement anteriorly and there was good stability with flexion, adduction and internal rotation. I did a trial both with a standard and a lateralized prosthesis. She has a high offset on the other side and it felt that the lateralized appeared to more anatomically represent the patient. On careful evaluation her cup appeared vertical from its initial insertion site and even though I could not demonstrate any specific instability felt that I should repositioned the cup. The hip was dislocated the head and neck piece was removed. The cuff was carefully examined its overall position and I removed the polyethylene liner and then remove the screw and repositioned the cup tamped it back down and fixed it with a screw through a new drill hole into a better position using careful fluoroscopic imaging. The liner was placed once we had achieved good position for the cup. I then did a repeat trial reduction and was happy with my fluoroscopic imaging as well as the patient demonstrating good stability throughout range of motion including maximum flexion extension and and maximum external rotation. Marcaine and Exparel were injected. The stem was placed without difficulty. Repeat trial reduction and x-ray showed acceptable overall position, length, and no evidence of the femoral fracture. Final head was placed. Wound was meticulously irrigated with normal saline. The hip was reduced and additional Exparel and Marcaine were injected. The capsule was closed with interrupted nonabsorbable sutures. The fascia of the tensor was closed with interrupted and running Vicryl. No drain was placed. Any tensor fascia zoey muscle that appeared to be contused or injured which was a minimal amount was carefully resected. Capsule around the tensor was injected with Exparel and Marcaine. The skin was closed with barbed stitches for the subcutaneous tissue and skin. We also used surgical glue. The wound was dressed sterilely. Brief Betadine soak was also used and was meticulously irrigated with normal saline. Patient was transferred to recovery room in satisfactory condition. Complications: none Post-operative Condition: stable Disposition: Acute Care Plan for aftercare: The patient will be maintained on a standard total hip replacement protocol with weight bearing as tolerated and anterior hip precautions. The patient will receive Aspirin and sequential compression devices for DVT prophylaxis. The patient will be discharged home when safe for the home environment.
[2024-06-24] MEDS: TRANEXAMIC ACID 1,000 MG VIAL 2000 MG INJ ×2 (14:19→16:18)
[2024-06-24] MEDS: CEFAZOLIN 2 GM/100 ML PREMIX 100 ML IV ×2 (14:23→22:16)
--- NOTE | 2024-06-24 14:44 | SUR.OPER ---
Supine on padded [place] table with bilateral legs secured in padded positioning boots and suspended in positioning spars, operative leg in traction per surgeon. Head on one pillow. Arm on non-operative side secured on padded armboard <90 degrees abduction. Arm on operative side padded and resting across chest then secured with tape over sheet. Padded perineal post in place per surgeon.
[2024-06-24] MEDS: BUPIVACAINE 0.25% (PF) 60 ML, EPINEPHrine 0.3 MG INJ (14:50)
[2024-06-24] MEDS: BUPIVACAINE LIPOSOME 266 MG/20 ML VIAL INJ (14:50)
[2024-06-24] MEDS: LACTATED RINGERS 1,000 ML 100 ML IV (18:18)
[2024-06-24] MEDS: DOCUSATE 100 MG CAPSULE PO (20:47)
[2024-06-24] MEDS: ACETAMINOPHEN 325 MG TABLET 650 MG PO (20:47)
[2024-06-24] MEDS: GABAPENTIN 300 MG CAPSULE PO (20:47)
[2024-06-24] MEDS: OXYCODONE IR 5 MG TABLET PO (20:47)
[2024-06-24] MEDS: ASPIRIN EC 81 MG TABLET PO (20:47)
[2024-06-25 05:42] LABS: Hematocrit 28.8 % (36-46); Hemoglobin 9.7 g/dL (12.0-16.0)
[2024-06-25] MEDS: OXYCODONE IR 5 MG TABLET PO ×2 (06:15→11:21)
[2024-06-25] MEDS: CEFAZOLIN 2 GM/100 ML PREMIX 100 ML IV (06:15)
[2024-06-25] MEDS: ACETAMINOPHEN 325 MG TABLET 650 MG PO (06:15)
--- NOTE | 2024-06-25 07:04 | P.DS_ITS ---
History of Present Illness History of Present Illness Date Patient Seen: 06/25/24 Time Patient Seen: 07:04 Chief complaint: OPB Narrative: Operative Date/Time/Diagnoses Date of procedure: 06/24/24 Time of procedure: 14:00 Pre-op diagnosis: Left hip osteoarthritis Post-op diagnosis: same Procedure & Clinicians Procedure: Left total hip arthroplasty anterior approach Same procedure as scheduled: Yes Indications: The patient has had progressively worsening left hip pain with radiographic changes consistent with arthritis. Non-operative management has failed and the patient has requested total hip replacement. The risks, benefits and alternatives to surgery were discussed with the patient prior to proceeding. Risks discussed included, but were not limited to, failure to relieve pain, leg length discrepancy, dislocation, stiffness, infection, nerve damage, deep venous thrombosis, pulmonary embolism, stroke, coma, heart attack, permanent paralysis and , as well as the potential need for eventual revision of the prosthetic. Surgeon: Marion Rivas Embedded Linux Developer: Ezequiel Pretty Anesthesia Type: General and Spinal Operative Notes Findings: Severe left hip OA, adequate stability, adequate bone Closure Type: primary Specimen(s): none sent Prosthetic devices, grafts, tissues, transplants, or devices: Rivas and nephew 52 mm R3, neutral poly liner,one 6.5 mm screw, polar stem lateralized size 1, 36 +0 femoral head cobalt chrome Estimated Blood Loss (mL): 250 Blood products transfused: none Discharge Providers Provider Discharge Date: 06/25/24 Primary care physician: Anjali Perez MD Consults: 06/24/24 06:00 Consult to Anesthesiology Routine Comment: Consulting Provider: Anesthesiologist Reason for consultation: Regional block for post operative pain control 06/24/24 17:31 Consult to Discharge Planning Routine Comment: Consult to Occupational Therapy Evaluate & Treat Comment: Physician Instructions: Evaluate and treat Consult to Physical Therapy Evaluate & Treat Comment: Physician Instructions: post op JOSLYN protocol Discharge provider: Tyra Mckeon PA-C Summary Hospital Course Discharge Diagnosis: Left hip osteoarthritis, s/p left total hip arthroplasty Hospital Course: Ms Francis's hospital course was unremarkable. On the morning of POD# 1, she was feeling well and wanted to go home. She was eating and voiding without difficulty and her pain was well-controlled with oral medication. She had not yet worked w/ PT but had been OOB walking multiple times since surgery. Exam Vital Signs (past 8 hours): - 06/24/24 23:47 Temperature 97.9 F Pulse Rate 76 Respiratory Rate 18 Blood Pressure 100/51 L Pulse Oximetry 94 Oxygen Flow Rate 0 Oxygen Delivery Method Room Air Oxygen Flow Rate 0 Narrative Exam Narrative: 5/5 strength in hip flexors, quadriceps, hamstrings, PF, DF, EHL on left. Sensation to light touch intact throughout LLE. Calf soft and compressible. Aquacel dressing CDI. Objective Labs 06/25/24 05:03 Labs: Laboratory Results - last 24 hr 06/25/24 05:03 Hgb 9.7 L Hct 28.8 L PFSH Medical History Easy bruisability Osteoarthritis Numbness History of COVID-19 (~2021) Surgical History History of total left knee replacement (01/08/23) Hx of tubal ligation Hx of bilateral cataract extraction (2021) Hx laparoscopic cholecystectomy (12/18/10) History of incision and drainage (05/11/12) History of total right hip replacement (03/01/13) Social History household members: none Smoking Status: Never smoker alcohol intake: never Discharge Assessment & Plan Assessment and Plan Assessment: Left hip osteoarthritis, s/p left total hip arthroplasty Plan of Treatment: Discharge home, ASA 81mg BID for VTE prophylaxis, outpt PT, multimodal pain control, f/u in office as scheduled. Discharge Plan Discharge Plan Patient Disposition: Home Discharge orders & Medications Discharge Orders: Discharge (Order); Ordered 06/25/24 Ordered By: Tyra Mckeon Prescriptions: Continued gabapentin [Neurontin] 300 MG capsule 300 mg PO HS Qty: 0 acetaminophen [Tylenol Extra Strength] 500 mg Tablet 1,000 mg PO Q6H PRN (Reason: Pain, Moderate) Follow up/Referrals: Anjali Perez MD [Primary Care Provider] - Marion Rivas MD [Physician] - 07/08/24 2:30 pm (Follow up w/ Tyra Mckeon PA-C, at [email or web address] office in [place].) Diet/Activity/Treatments Diet: Diet as Tolerated Activity: Weightbearing as tolerated. Anterior hip precautions. Cold/Heat Therapy: Ice to hip as needed for pain. Skin/Wound/Dressing Care Report to your healthcare provider any signs of infection, such as:: chills, fever, night sweats, unusual drainage and unusual redness Dressing: May shower. Leave dressing in place until follow up in office. No bathing or otherwise soaking incision. Call the office if the dressing becomes saturated inside. Visit Report/Discharge Packet Instructions: DI for Hip Replacement, DI for Prescription Opioid Use Stand Alone Forms: Patient Portal/API, Surgery Discharge Discharge Data Primary Care Provider: Anjali Perez Attending Provider: Marion Rivas
[2024-06-25 08:00] VITALS: BP 106/63; PULSE 75; RESP 17; TEMP 36.6; O2SAT 94
[2024-06-25] MEDS: DOCUSATE 100 MG CAPSULE PO (09:02)
[2024-06-25] MEDS: ASPIRIN EC 81 MG TABLET PO (09:02)
--- NOTE | 2024-06-25 09:10 | PT.IIE ---
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) Hx laparoscopic cholecystectomy (12/18/10) Hx of bilateral cataract extraction (2021) Hx of tubal ligation Medical History (Last Reviewed 06/24/24 @ 12:17 by Concha Kevin RN) Easy bruisability History of COVID-19 (~2021) Numbness Osteoarthritis Physical Therapy Inpatient Evaluation/Re-Eval M1 PT/OT-IP Prior Functional Status Start: 06/25/24 12:45 Freq: NEEDED Status: Active Protocol: Document 06/25/24 09:10 AB (Rec: 06/25/24 13:01 [id number]) Medical Review Prior Functional Status Medical History Reviewed Yes Communication able to make needs known Mobility and Gait pt stated that she was indpeendent with all mobilities and ambulation wihtout AD; stated that she usually walks ~ 5 miles daily and does water aerobics Activities of Daily Living and IADL's per OT note: I for all ADL and IADL needs. 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 Social History Household Members none Living Arrangements House Number of Floors (Floors) Two Floors Number of Stairs To Enter/Railing? pt stays on main level of the house 3 steps wtihout rails to enter Home Environment Standard Height Toilet,Walk in Shower,Built-In Shower Seat Home Equipment Raised Toilet Seat w/Armrests, Hand Held Shower,Grab Bars In Shower Additional Social History Comment pt will have her sister or daughter to assist her at home and will stay ~ 1 week M2 PT-IP Current Condition Start: 06/25/24 12:45 Freq: NEEDED Status: Active Protocol: Document 06/25/24 09:10 AB (Rec: 06/25/24 13:01 AB [id number]) Physical Therapy Current Condition Current Condition Evaluation Date 06/25/24 Treatment Diagnosis s/p L JOSLYN anterior; difficulty in walking Onset Date 06/24/24 M3 PT-IP Subjective Start: 06/25/24 12:45 Freq: NEEDED Status: Active Protocol: Document 06/25/24 09:10 AB (Rec: 06/25/24 13:01 [id number]) Subjective Physical Therapy Visit Type Type Initial Evaluation Visit Start Time 09:10 Visit Stop Time 10:00 Number of STRATEGY LEAD Visits 0 Physical Therapy Visit Comments Patient Comments agreeable to do PT Therapy Pain Assessment Pain When Pain Assessed At Rest Pain Present Pain Present Pain Reported Location Left Hip Intensity 3 Scale Used Numeric (0 - 10) Pain Management Techniques Apply Cold,Distraction, Modification of Treatment,Re- positioning,Timing of Activity with Medications M4 PT-IP Mobility and Gait Start: 06/25/24 12:45 Freq: NEEDED Status: Active Protocol: Document 06/25/24 09:10 AB (Rec: 06/25/24 13:01 [id number]) PT-Bed Mobility Assessment Supine to Sit Supine to Sit Standby Assistance PT-Transfer Assessment Sit to and From Stand Sit to and from Stand Standby Assistance,1 Person Assistance,Use of Upper Extremities Equipment Transfer Assistive Device Gait Belt,Front Wheeled Walker ,4 Wheeled Walker Orthotic/Prosthetic Devices or Brace: No Transfers Transfer Destination Chair Transfer Technique ambulated Transfer Ability Level of Assist Standby Assistance,1 Person Assistance,Use of Upper Extremities Comments Mobility Comments pt supine in bed and agreeable to do PT. obtained PLOF and home set up. post-op folder provided and reviewed contents . educated p on L hip anterior precautions. BP in supine: 106/52. completed supine to sit SBA. BP: 96/54. no c/o dizziness/ lightheadedness. completed sit to stand SBA and ambulated to the chair using FWW SBA and cues. pt prefers using her 4WW instead of a FWW. pt agreed to do stairs. ambulated towards platform step using 4WW SBA. completed up/down platform step using SPC CGA. repeated x 2 sets. pt ambulated back to the room using 4WW sBA. c/o lightheadedness. Pt sat on the chair. BP checked: 72/44. reclined pt on the chair. BP checked: 80//47. positioned pt on the chair. call light and table placed within reach. BP checked again: 99/57. nurse aware. Gait Assessment Gait Gait Assistance Required: Standby Assistance Distance (Feet) 20 Able to Maintain Weight Bearing Status Yes During Gait Assistive Devices Assistive Device Gait Belt,Front Wheeled Walker ,4 Wheeled Walker Orthotic/Prosthetic Devices or Brace: No Gait Deviations General Gait Pattern Antalgic,Decreased Feet Clearance,Narrow Based Gait Factors Limiting Gait Function Factors Limiting Gait Function Decreased Activity Tolerance, Decreased Strength,Limited Range of Motion,Pain,Poor Balance,Poor Safety Awareness Stair Climbing Assessment Evaluation Level of Assist On Stairs Contact Guard Assistance Devices Stair Climbing Assistive Devices Straight Cane Technique/Endurance Stair Climbing Direction Ascend and Descend Stair Climbing Technique Step to Step Number of Steps Climbed 1 Query Text: Stair Climbing Set # Repetitions (reps) 2 PT-Balance Assessment Sitting Balance and Reactions Static Sitting Balance Ability Normal Dynamic Sitting Balance Ability Good Standing Balance and Reactions Static Standing Balance Ability Fair Dynamic Standing Balance Ability Fair Device Used FWW M5 PT-IP Objective Assessments Start: 06/25/24 12:45 Freq: NEEDED Status: Active Protocol: Document 06/25/24 09:10 AB (Rec: 06/25/24 13:01 [id number]) Orientation Orientation/Cognition Level of Alertness Alert Orientation Name,Place,Situation Language Function Ability No Deficits Noted Safety Awareness Understands Safety Issues Memory Description No Deficits Noted Gross Range of Motion Lower Extremity ROM Assessment Within Functional Limits Strength Lower Extremity Strength Assessment Within Functional Limits Coordination Assessment Gross Coordination Gross Coordination WNL Sensation Assessment Sensation Gross Sensation WNL Muscle Tone Muscle Tone WNL Yes M6 PT-IP Treatment Start: 06/25/24 12:45 Freq: NEEDED Status: Active Protocol: Document 06/25/24 09:10 AB (Rec: 06/25/24 13:01 [id number]) Physical Therapy Treatment Education Education Provided Precautions,Weight Bearing Status,Post-Op Packet,Safety M7 PT-IP Assessment and Plan Start: 06/25/24 12:45 Freq: NEEDED Status: Active Protocol: Document 06/25/24 09:10 AB (Rec: 06/25/24 13:01 [id number]) PT Summary Assessment and Plan Potential Rehabilitation Potential Good Status of Condition at Evaluation Stable Summary Impairments Pain,ROM,Strength,Balance,Bed Mobility,Transfers,Gait, Activity Tolerance Assessment Summary pt is a 79 y/o F s/p L JOSLYN anterior approach POD 1. pt has L hip anterior precautions and is WBAT. pt requiring SBA with mobility using 4WW for transfers and ambulation. requiring CGA with stair climbing and pt stated that she can inform her sister on how to assist her. pt with incidence of decrease BP affecting activity tolerance and mobility. pt plans to go home with sister/daughter to assist. pt may go home when medically stable. Goals Bed Mobility Goal Independent Transfer Goal Independent,Front Wheeled Walker,Four Wheeled Walker Gait Goal Independent,Front Wheel Walker ,Four Wheel Walker Gait Distance 200 Days to Meet Goals 3 Frequency of Treatment Frequency Of Treatment Twice a Day Treatment Plan Physical Therapy Treatment Plan Bed Mobility Training,Transfer Training,Gait Training, Therapeutic Exercise,Balance Retraining,Post Op Education, Discharge Planning,Hot or Cold Pack,Neuromuscular Re-ed, Coordination Retraining,Manual Therapy Precautions Anterior Hip Precautions No Hip Extension,No Hip External Rotation Weight Bearing Status Weight Bearing Status Weight Bear as Tolerated Allowed Weight Bearing Amount (enter % LLE WBAT or #) (%) Recommendations To Nursing Amount of Assist Needed 1 Person Assist Discharge Recommendations PT Discharge Recommendations Home with Assistance, Outpatient PT Transportation Needs at Discharge Private Vehicle
[2024-06-25 09:47] VITALS: BP 80/47
[2024-06-25 09:52] VITALS: BP 99/57
--- NOTE | 2024-06-25 10:09 | PC.NURSE ---
PT notified this RN that Pt had orthostatic hypotension this morning. Pt was symptomatic for lightheadedness and feeling warm. Currently sitting in chair with resting BP of 106/52 and no longer feeling lightheaded or warm. Notified ANGELICA Mckeon. No orders for IV fluids. OT with Pt now and will recheck BP.
--- NOTE | 2024-06-25 10:24 | OT.IP.EVAL ---
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 Activities of Daily Living and IADL's I for all ADL and IADL needs. 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 Social History Household Members none Living Arrangements House Number of Floors (Floors) 3 or More Floors Number of Stairs To Enter/Railing? 3 steps with enter no rails. Home Environment Standard Height Toilet,Walk in Shower,Built-In Shower Seat Home Equipment Four Wheel Walker,Straight Cane,Raised Toilet Seat w/ Armrests,Hand Held Shower, Front End Loader Operator,Grab Bars In Shower Additional Social History Comment Pt to obtain FWW. M2 OT-IP Current Condition Start: 06/25/24 10:19 Freq: Status: Active Protocol: Document 06/25/24 10:24 [facility] (Rec: 06/25/24 10:35 [facility] [id number]) Occupational Therapy Current Condition Current Condition Evaluation Date 06/25/24 Treatment Diagnosis S/P L JOSLYN anterior approach Diagnosis Onset Date 06/24/24 Post Operative Precautions Anterior Hip Precautions No Hip Extension,No Hip External Rotation M3 OT- IP Subjective and Pain Start: 06/25/24 10:19 Freq: Status: Active Protocol: Document 06/25/24 10:24 [facility] (Rec: 06/25/24 10:35 [facility] [id number]) OT- Subjective Occupational Therapy Visit Type Type Initial Evaluation Visit Start Time 09:55 Visit Stop Time 10:24 Occupational Therapy Visit Comments Patient Comments Pt having low BP with PT just prior but feeling better to try to get up again. Patient/Caregiver Goals TO go home. OT Pain Assessment Pain When Pain Assessed During Mobility Pain Present Pain Present Pain Reported Location Left Knee Pain Behaviors Holding Area M4 OT- IP ADL's Start: 06/25/24 10:19 Freq: Status: Active Protocol: Document 06/25/24 10:24 [facility] (Rec: 06/25/24 10:35 [facility] [id number]) OT FER-Maka-Xwuqymy General Evaluation Self-Feeding Ability Independent OT ADL-Grooming General Evaluation Grooming Ability Independent Comments OT Grooming Comments While standing with FWW. OT ADL-Oral Care General Eval Oral Care Ability Independent Comments Oral Care Comments WHile standing with FWW. OT ADL-Dressing General Eval Lower Body Dressing Ability Minimal Assistance Areas Needing Assistance Socks Comments OT Dressing Comments Able to show pt use of sock aid and director of casino for LB dressing needs. Educated to dress the LLE first and take out last. OT ADL-Toileting Comments OT Toileting Comments Suggested easier to stand and wipe. OT ADL-Bathing Comments OT Bathing Comments Pt will have assist and educated of dressing care. M5 OT- IP IADL's Start: 06/25/24 10:19 Freq: Status: Active Protocol: Document 06/25/24 10:24 [facility] (Rec: 06/25/24 10:35 [facility] [id number]) OT-Instrumental Activities of Daily Living Deficits IADL Deficits Identified No Deficits Home Safety Awareness Awareness of Need for Assistance at Home Good Awareness Ability to Problem Solve Emergency Able to Problem Solve Situations Medication Management Medication Management No Deficits Identified Money Management Money Management No Deficits Identified Meal Preparation Meal Preparation Caregiver Provides Assist Coffee Shop Manager Coffee Shop Manager Caregiver Provides Assist M6 OT- IP Functional Cognition Start: 06/25/24 10:19 Freq: Status: Active Protocol: Document 06/25/24 10:24 [facility] (Rec: 06/25/24 10:35 [facility] [id number]) Cognitive Factors Limiting Selfcare Function Cognitive Ability Level of Alertness Alert Patient Orientation Name,Age,Birthday,Month,Date, Year,Day of Week,Place, Situation Attention Span Ability Capable of Focused Attention, Capable of Sustained Attention Ability to Follow Commands Able to Follow One Step Commands Memory Description No Deficits Noted Safety Awareness No Deficits Noted Problem Solving Ability No deficits Noted Cognitive Comments Cognitive Assessment Comments Pt able to recall her hip precautions and incorporate for ADL and mobility needs. OT- Vision and Hearing OT- Hearing Assessment OT- Hearing Assessment WFL OT- Vision Assessment Visual Acuity WFL Visual Attentiveness WFL Occular Pursuits WFL M7 OT- IP Mobility and Balance Start: 06/25/24 10:19 Freq: Status: Active Protocol: Document 06/25/24 10:24 [facility] (Rec: 06/25/24 10:35 [facility] [id number]) OT-Transfer Assessment Sit to and From Stand Sit to and from Stand Independent Transfers Transfer Ability Standby Assistance Technique Transfer Destination Chair Devices Transfer Assistive Devices None,Front Wheeled Walker Comments Mobility Comments Pt able to come to stand with the FWW and walk to and from the with distant SBA. BP supine 101/52, sitting 100/50, 98/65, and standing 89/63 and after getting back from the sink 95/53. Educated of bed positioning and car transfers. OT- Balance Assessment Sitting Balance and Reactions Static Sitting Balance Ability Normal Dynamic Sitting Balance Ability Normal Standing Balance and Reactions Static Standing Balance Ability Normal Dynamic Standing Balance Ability Good M8 OT- IP Objective Assessments Start: 06/25/24 10:19 Freq: Status: Active Protocol: Document 06/25/24 10:24 [facility] (Rec: 06/25/24 10:35 [facility] [id number]) OT Gross Range of Motion Upper Extremity Range of Motion Assessment Within Functional Limits OT Strength Upper Extremity Strength Assessment Within Functional Limits M9 OT- IP Assessment and Plan Start: 06/25/24 10:19 Freq: Status: Active Protocol: Document 06/25/24 10:24 [facility] (Rec: 06/25/24 10:35 [facility] [id number]) OT Summary Assessment and Plan Potential Rehabilitation Potential Excellent Analytic Complexity at Evaluation Low Summary OT Impairments Pain,Functional Mobility, Dressing,Toileting,Bathing, Shower Transfers Progress Towards Goals Progressing Toward Goals Assessment Summary Pt low complexity and main barriers are pain and initially having low BP. Pt to go home with family to assist and go to outpt PT. Goals Dressing Goal Independent,Front End Loader Operator,Sock Aid Toileting Goal Independent Bathing Goal Standby Assistance Toilet Transfer Goal Independent Shower Transfer Goal Standby Assistance Days to Meet Goals 5 Frequency of Treatment Other frequency 29 Treatment Plan OT Treatment Plan ADL Training,Functional Mobility,Patient/Family Education,Discharge Planning Discharge Recommendations OT Discharge Recommendations Home with Assistance, Outpatient PT Home Equipment Needs KENW
--- NOTE | 2024-06-25 11:58 | CM.DANOTE ---
B DCP Assessment Note pt is as 79yo F POD1 total left hip with Dr. 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 indep at baseline with a walker/cane/grab bars in the home. Per chart review, plan is to dc home with sister support for a bit until can be home alone. hx of total knee 01/08/23 where she dc'd home no CM needs. Per OT, rec home with assistance and OP PT. PT eval pending. Per RN report, no obvious CM needs at this time. P: home today with sister support/to transport. pt expected to be cleared by PT to dc to sister's house. no needs identified at this time, CM team will continue to follow as needed for any DC needs or concerns that arise. YESSY Still Discharge Planning/Care Management CM Discharge Assessment Start: 06/25/24 11:55 Freq: Status: Active Protocol: Document 06/25/24 11:55 SL (Rec: 06/25/24 11:58 SL [id number]) Discharge Planning Assessment Assigned Corporate Quality Engineer YESSY Hernandez DPOA/Assigned Designee Name fernandez Montalvo Contact Information [phone] Advance Directives? Yes Advance Directives on File No History Provided By Patient,Medical Record Prior Living Arrangements House Household Members none Type of transporation used prior to Drives own vehicle admit Independent with ADL's Yes Is patient alert and oriented? Yes DME Already Rented / Owned FWW / Walker,Cane Patient/Family Preference OP PT Therapy Barriers to Discharge No Discharge Plan Home Transportation Arrangement Family Referrals Initiated None needed Review Status In Process Please Provide Date Initial DC 06/25/24 Assessment Was Performed Next Review Type Continued Stay Review Pre-Anesthesia Assessment Start: 06/15/24 12:53 Freq: Status: Active Protocol: Document 06/15/24 12:54 LB (Rec: 06/15/24 13:20 LB [id number]) Pre-Anesthesia Assessment PAC Comment 06/15/24 Phone assessment. Preferred Name Dorie Patient Information Reviewed Via Phone Assessment Assessment Completed With Patient Diagnostic Results BMP/CMP,CBC Comment 04/01/24 at . Primary Care Provider Anjali Perez Medical Clearance Received Not Applicable Seen Specialist in Last 12 Months Yes Specialist Seen Orthopedist Primary Language French Preferred Language French Sheet Metal Roofer Required No Height 172.72 cm Weight 63.503 kg Body Mass Index (BMI) 21.2 Hearing Ability Normal Visual Assist None Dentition Type Teeth, Natural Present,Full- Upper Barriers to Learning None Other Aids No Comment Pt very concerned that her dentures will be lost. Hx Anesthesia Reactions No Hx Family Anesthesia Reaction No Hx Malignant Hyperthermia No Hx Blood Transfusions No Anesthesia Review Requested No Crop Farmers No alcohol intake never Smoking Status Never smoker Substance Use Type does not use Pain Present Denied Pain History of Falling (Recent or History of No ) Patient is completely paralyzed or No completely immobile Comment Will bring walker. Is patient on oxygen? No Does patient have MASSEY/SOB No Hx Sleep Apnea No CPAP/BIPAP use not prescribed Currently Taking a Beta [place] No Can You Climb a Flight of Stairs Without Yes SOB Hx Chest Pain No Hx SOB No Hx Syncope or Dizziness No Anti-Coagulant Therapy No Has a Assistant Women'S Basketball Coach No Cardiac Testing No Hx Pacemaker/ICD No Dysphagia No Hx Urinary Self Catheterization No Diabetes No HgbA1C 5.6 Date 04/01/24 Patient No Lactating No Hx Drug Resistant Organism No Presence of External or Internal Medical Yes: Bilat IOL, right hip, Devices left knee. Have you had any close contact with No someone diagnosed with COVID-19? Are you experiencing any of these No symptoms symptoms? Received a COVID vaccine? Yes Lives With none Current Living Arrangements House Number of Floors (Floors) 3 or More Floors Number of Stairs To Enter/Railing? 3 steps to enter without railing. Main floor living. Support System Child/Children,Sibling(s) Does the Patient Have Assistance After Yes Surgery Patient Discharge Plan Description Return Home Feels Safe in Current Environment Yes Do you have a plan to hurt yourself or No Plan others? Do You Have Any Spiritual Beliefs That No May Affect Your HC Choices? Do You Have Any Cultural Practices That No May Affect Your HC Choices? Emergency Contact Name Selvin Francis - daughter Emergency Contact Advance Directives? Yes Advance Directives on File No Requested Patient Bring Advanced Yes Directives DOS PAC Instructions Assistance for 24 hours post- op,Durable medical equipment, Medications to take/avoid, Nasal antibiotic,No ETOH/ petroleum product on skin DOS, NPO,Post-op transportation,Pre -surgical wash,Sturdy shoes/ comfortable clothes,Do not bring valuables and remove jewelry
--- NOTE | 2024-06-25 13:52 | PC.NURSE ---
D/c instructions reviewed with Pt and her sister. Discussed no driving while taking narcotics, and to increase fluid intake in order to reduce risk of constipation. IV removed. Pt confirmed she had all belongings. Pt exited via w/c with BARREL BRIDGE ASSEMBLER to private vehicle.
== END 2024-06-25 14:06 | disposition home or self-care (01) ==
LOC: OR 11:27 → AC 11:28
PROVIDERS: PCP Internal Medicine; Referring Provider Orthopaedic Surgery; Visit Provider Orthopaedic Surgery
PROC: (CPT 27130; principal; 2024-06-24 13:45)
DX: M16.12 Unilateral primary osteoarthritis, left hip (principal); M25.752 Osteophyte, left hip
CPT/HCPCS: 27130; 36415; 73502; 73503; 76000; 85014; 85018; 97162; 97165; 97530; 97535; C1776; C9290; J0171; J0690; J1100; J2405; J2704; J3010

== ENCOUNTER → 2025-03-10 09:02 | Outpatient (CLI) | payer OTHER, SELFPAY ==
[2024-06-24 18:10] VITALS: BMI 21.2
[2025-03-10 10:15] LABS: Hematocrit 38.9 % (36-46); Hemoglobin 12.9 g/dL (12.0-16.0); Mean Corpuscular HGB Conc 33.2 % (30-36); Mean Corpuscular Hemoglobin 30.5 PG (26-34); Mean Corpuscular Volume 91.8 fL (80-100); Platelet Count 359 X10^3/uL (150-400)
[2025-03-10 10:19] LABS: Hemoglobin A1C% w Est Avg Glu 5.6 % (4.0-6.0)
[2025-03-10 10:25] LABS: Alanine Aminotransferase 16 IU/L (<35); Albumin 4.5 g/dL (3.5-5.0); Albumin Globulin Ratio 1.4 (1.0-2.8); Alkaline Phosphatase 102 U/L (38-126); Blood Urea Nitrogen 21 mg/dL (7-17); Calcium 10.1 mg/dL (8.4-10.2); Carbon Dioxide 27 mmol/L (22-32); Chloride 106 mmol/L (98-107); Cholesterol 223 mg/dL (140-199); Estimated Glomerular Filt Rate > 60 mL/min (>60); Globulin 3.3 g/dL (1.7-4.1); Glucose 88 mg/dL (70-99); HDL Cholesterol 61 mg/dL (40-60); HEMOLYSIS < 15 (0-50); Sodium 140 mmol/L (137-145); Total Protein 7.8 g/dL (6.3-8.2); Triglycerides 113 mg/dL (35-150)
[2025-03-10 10:27] LABS: Potassium 5.4 mmol/L (3.4-5.1)
== END ==
PROVIDERS: PCP Family Medicine; Referring Provider Family Medicine; Visit Provider Family Medicine
DX: D64.9 Anemia, unspecified (principal); T39.1X1A Poisoning by 4-Aminophenol derivatives, accidental (unintentional), initial encounter; R73.03 Prediabetes; E78.5 Hyperlipidemia, unspecified
CPT/HCPCS: 36415; 80053; 80061; 83036; 85027

== ENCOUNTER → 2025-06-30 10:00 | Outpatient (CLI) | payer OTHER, SELFPAY ==
[2024-06-24 18:10] VITALS: BMI 21.2
[2025-06-30 12:40] LABS: Alanine Aminotransferase 15 IU/L (<35); Albumin 4.4 g/dL (3.5-5.0); Albumin Globulin Ratio 1.3 (1.0-2.8); Alkaline Phosphatase 97 U/L (38-126); Blood Urea Nitrogen 16 mg/dL (7-17); Calcium 9.7 mg/dL (8.4-10.2); Carbon Dioxide 27 mmol/L (22-32); Chloride 104 mmol/L (98-107); Cholesterol 193 mg/dL (140-199); Estimated Glomerular Filt Rate > 60 mL/min (>60); Globulin 3.3 g/dL (1.7-4.1); Glucose 82 mg/dL (70-99); HDL Cholesterol 57 mg/dL (40-60); HEMOLYSIS < 15 (0-50); Potassium 4.9 mmol/L (3.4-5.1); Sodium 139 mmol/L (137-145); Total Protein 7.7 g/dL (6.3-8.2); Triglycerides 118 mg/dL (35-150)
== END ==
PROVIDERS: PCP Family Medicine; Referring Provider Family Medicine; Visit Provider Family Medicine
DX: E78.5 Hyperlipidemia, unspecified (principal); E87.5 Hyperkalemia
CPT/HCPCS: 36415; 80053; 80061